=== PATIENT | female | born 1990 | race Caucasian/White ===

== ENCOUNTER 2019-03-05 13:06 | Inpatient (IN) | payer SELFPAY ==
[~2019-03-05] VITALS: Ht 167.6 cm; Wt 81.8 kg
--- NOTE | ~2019-03-05 | DS ---
PATIENT:ESPINOZA AGUIAR :89 MEDICAL RECORD: [id number] DISCHARGE SUMMARY ADMISSION DATE: 03/05/19 DISCHARGE DATE: 03/06/19 DATE OF ADMISSION: 03/05/2019. DATE OF DISCHARGE: 03/06/2019. ADMISSION DIAGNOSES: Acute appendicitis with localized peritonitis. DISCHARGE DIAGNOSES: Acute appendicitis with localized peritonitis. PROCEDURE: Laparoscopic appendectomy on 03/06/2019. CONSULTATIONS: None. REPORT OF HOSPITALIZATION: The patient was admitted to the hospital through the ER with a 4-day history of right lower quadrant/periumbilical pain. A CT scan showed evidence of acute appendicitis. She was given IV antibiotics and the following morning she was taken to the operating room where she underwent a successful laparoscopic appendectomy. Postoperatively, the patient did well and she was set up for discharge home. DISCHARGE INSTRUCTIONS: Return to clinic or call with any questions or concerns, fevers, chills, nausea, vomiting or worsening abdominal pain. ACTIVITIES: No heavy lifting or straining for 2 weeks postoperatively. FOLLOWUP: In clinic with me in 2-3 weeks. DISCHARGE MEDICATIONS: [place] 10 and Zofran 4 mg. TRANSINT:[id number] Voice Confirmation ID: [id number] DOCUMENT ID: [id number] DAO FALL MD CC: [id number] DICTATION DATE: 04/16/19 1401 FLIGHT PURSER: 04/17/19 0024 DIS IN 03/06/19 [facility] [address] [place] [address]
--- NOTE | 2019-03-05 13:30 | NUR ---
URINE SPECIMEN OBTAINED, LABELED AT BS AND SENT TO LAB
[2019-03-05 13:43] VITALS: BP 168/102
[2019-03-05 13:51] LABS: CALC OSMOLALITY 267 mosm/kg (275-300); CALCIUM 9.1 mg/dL (8.5-10.1); CARBON DIOXIDE 21.7 mmol/L (21.0-32.0); CHLORIDE - SERUM 103 mmol/L (98-107); CREATININE - SERUM 0.7 mg/dL (0.6-1.3); GLUCOSE 94 mg/dL (74-106); HCG SERUM NEGATIVE (NEGATIVE); POTASSIUM - SERUM 3.9 mmol/L (3.5-5.1); SODIUM 135 mmol/L (136-145); UREA NITROGEN 7 mg/dL (7-18); eGFR NON AFRICAN AMERICAN > 90 mL/min (90-120)
[2019-03-05 13:56] LABS: ALBUMIN 3.9 g/dL (3.4-5.0); ALKALINE PHOSPHATASE 103 U/L (46-116); ALT (SGPT) 24 U/L (10-68); AMYLASE - SERUM 59 U/L (25-115); BILIRUBIN - TOTAL 1.12 mg/dL (0.2-1.3); LIPASE 87 U/L (73-393); PROTEIN - SERUM 7.7 g/dL (6.4-8.2)
[2019-03-05 14:18] LABS: APPEARANCE CLEAR (CLEAR); BACTERIA FEW /hpf (NEGATIVE); BILIRUBIN NEGATIVE (NEGATIVE); COLOR YELLOW (YELLOW); EPITHELIAL CELLS 0-5 /hpf (0-5); GLUCOSE NEGATIVE (NEGATIVE); HCG URINE NEGATIVE (NEGATIVE); KETONE NEGATIVE (NEGATIVE); MUCUS <1+ /lpf (NONE SEEN); NITRITE NEGATIVE (NEGATIVE); PROTEIN NEGATIVE (NEGATIVE); RED CELLS - URINE 0-5 /hpf (0-5); UROBILINOGEN NORMAL (NORMAL); WHITE CELLS - URINE RARE /hpf (NEGATIVE)
[2019-03-05 14:19] LABS: BASOPHILS 0.1 % (0-2); EOSINOPHILS 0.4 % (0-7); HEMATOCRIT 47.9 % (36.0-48.0); HEMOGLOBIN 16.9 g/dL (12-16); IMMATURE GRANULOCYTES 0.3 % (0-5); LYMPHOCYTES 22.1 % (15-50); MCH 33.2 pg (26.0-34.0); MCHC 35.3 g/dL (31.0-37.0); MCV 94.1 fL (80.0-100.0); MEAN PLATELET VOLUME 10.1 fL (7.4-10.4); MONOCYTES 7.5 % (2-11); NEUTROPHILS 69.6 % (40-80); PLATELET COUNT 325 10x3/uL (130-400); RBC 5.09 10x6/uL (4.00-5.40); RDW 11.9 % (11.5-14.5); WBC 15.4 10x3/uL (4.8-10.8)
--- NOTE | 2019-03-05 14:34 | NUR ---
TO CT VIA WC WITH STRIKE PLANNING APPLICATIONS
[2019-03-05 15:07] VITALS: BP 156/115
--- NOTE | 2019-03-05 15:08 | NUR ---
RTN TO ER#12. NAUSEA RESOLVED CONT TO C/O ABD PAIN. BP ELEVATED. MD NOTIFIED
[2019-03-05 15:32] VITALS: BP 152/107
[2019-03-05 17:30] VITALS: BP 139/93
--- NOTE | 2019-03-05 17:48 | NUR ---
TRANSPORTED TO ROOM #0523 CONDITION STABLE
[2019-03-05 19:00] VITALS: BP 143/90
--- NOTE | 2019-03-05 19:30 | NUR ---
PT LYING IN BED WITHOUT DISTRESS, AOX4. DAUGHTER AT BEDSIDE. IV LEFT WRIST INFUSING NS @ 75 WITH DILAUID TUNNEL ELASTIC OPERATOR ZIGZAG. DENIES NEEDS, CL IN REACH. WILL CTM
--- NOTE | 2019-03-05 21:15 | NUR ---
PT STATES SHE HAS HEADACHE 12/22. CALLED DR FALL AND RECIEVED ORDER FOR TYLENOL 650MG PO Q6PRN FOR HEADACHE. GAVE ORDERED. CONSENTS SIGNED FOR PROCEDURE IN MORNING. REMINDED PT SHE IS NPO AFTER MN. VERBALIZED UNDERSTANDING. DENIES FUTHER NEEDS. CL IN REACH, WILL CTM
--- NOTE | 2019-03-05 22:04 | NUR ---
PT VOMITED INTO TOILET. STATES SHE THOUGHT SHE DRANK TOO MUCH WATER. GAVE ZOFRAN ORDERED. DENIES OTHER NEEDS. CL IN REACH, WILL CTM
[2019-03-06] VITALS: BP 149/91
[2019-03-06 02:00] VITALS: Ht 167.6 cm; Wt 81.8 kg
[2019-03-06 04:00] VITALS: BP 151/88
--- NOTE | 2019-03-06 04:50 | NUR ---
GHG BATH GIVEN, LINENS CHANGED
[2019-03-06 06:17] LABS: BASOPHILS 0.1 % (0-2); EOSINOPHILS 0.7 % (0-7); HEMATOCRIT 44.1 % (36.0-48.0); IMMATURE GRANULOCYTES 0.2 % (0-5); LYMPHOCYTES 30.7 % (15-50); MCH 32.5 pg (26.0-34.0); MCV 95.5 fL (80.0-100.0); MEAN PLATELET VOLUME 10.4 fL (7.4-10.4); NEUTROPHILS 60.3 % (40-80); PLATELET COUNT 282 10x3/uL (130-400); RBC 4.62 10x6/uL (4.00-5.40); RDW 12.2 % (11.5-14.5)
[2019-03-06 06:31] LABS: CALC OSMOLALITY 274 mosm/kg (275-300); CALCIUM 8.5 mg/dL (8.5-10.1); CARBON DIOXIDE 27.3 mmol/L (21.0-32.0); CHLORIDE - SERUM 106 mmol/L (98-107); CREATININE - SERUM 0.7 mg/dL (0.6-1.3); GLUCOSE 84 mg/dL (74-106); POTASSIUM - SERUM 4.4 mmol/L (3.5-5.1); SODIUM 139 mmol/L (136-145); UREA NITROGEN 7 mg/dL (7-18); eGFR NON AFRICAN AMERICAN > 90 mL/min (90-120)
[2019-03-06 06:41] LABS: WBC 9.6 10x3/uL (4.8-10.8)
--- NOTE | 2019-03-06 07:20 | NUR ---
ALERT AND ORIENTED. LUNGS CLEAR BILATERALLY. HEART SOUNDS S1 AND S2 HEARD IN ALL [place]. BOWEL SOUNDS ACTIVE X 4. ADB PAIN NOTED. N/V. SKIN INTACT WITHOUT REDNESS. IV TO LEFT WRIST PATENT WITHOUT REDNESS. DENIES NEEDS. UNHOOKED FROM IV AND TAKE FOR LAPAROSCOPIC APPENDECTOMY. PREOP MEDS GIVEN ON PREVIOUS SHIFT.
[2019-03-06] MEDS ORDERED: HYDROCODON-ACE1 EA10 PO (08:35)
[2019-03-06 09:21] VITALS: BP 130/77
--- NOTE | 2019-03-06 09:25 | NUR ---
PATIENT RETURNED FROM PROCEDURE. VITALS STABLE. DITCH CLEANER DISCONTINUED PER ORDER.
[2019-03-06 09:40] VITALS: BP 139/89
--- NOTE | 2019-03-06 09:46 | NUR ---
PATIENT REQUESTS TO BE DISCHARGED HOME WITH ZOFRAN D/T "PAIN MEDICATION MAKES ME NAUSEAS." DR EUFEMIA KIM.
[2019-03-06 09:55] VITALS: BP 131/91
--- NOTE | 2019-03-06 10:04 | NUR ---
SPOKE WITH DR FALL WHO STATES WILL SEND PATIENT HOME WITH ZOFRAN IN ADDITION TO PAIN MEDICATION PER REQUEST.
[2019-03-06 10:10] VITALS: BP 124/84
[2019-03-06] MEDS ORDERED: ZOFRAN ODT4 MG/UDTAB PO (10:10)
--- NOTE | 2019-03-06 10:18 | NUR ---
RESTING IN BED. POST OP VITALS REMAIN STABLE. WILL CONTINUE TO MONITOR.
--- NOTE | 2019-03-06 10:58 | NUR ---
DISCHARGE EDUCATION PROVIDED BOTH WRITTEN AND VERBAL. VERBALIZED UNDERSTANDING. DENIES FURTHER QUESTIONS. IV REMOVED FROM LEFT WRIST WITH TIP INTACT. PATIENT DENIES FURTHER NEEDS. WAITING FOR MOM TO PRESS OPERATOR AUTOMATIC.
--- NOTE | 2019-03-07 13:49 | OP ---
PATIENT NAME: ESPINOZA AGUIAR MEDICAL RECORD: [id number] :89 LOCATION:[id number] ADMISSION DATE:03/05/19 SURGEON: ERROL FALL MD DATE OF OPERATION: 03/06/2019 PREOPERATIVE DIAGNOSIS: Acute appendicitis with localized peritonitis. POSTOPERATIVE DIAGNOSIS: Acute appendicitis with localized peritonitis. PROCEDURE: Laparoscopic appendectomy. SURGEON: Errol Fall MD REPORT OF PROCEDURE: The patient's abdomen was prepped and draped in sterile fashion. A cutdown was made on the superior aspect of the umbilicus, 0 Vicryls were placed in the fascia bilaterally and the fascia was incised with 15-blade. I then bluntly entered the peritoneal cavity and placed a 12-mm Aly port. Under direct visualization, a 5-mm trocar was placed in the left lower quadrant and another was placed in the suprapubic region. The appendix was easily visualized and noted to be inflamed with no sign of gangrene or perforation. There were no abscess pockets present. We elevated this appendix and took down any adhesions. A window was made at the base of the mesoappendix and the mesoappendix was transected with a 45 white load Endo-SALMA stapler. We then transected the base of the appendix at the cecum using a 45 blue load Endo-SALMA stapler. The appendix was placed into an Endo Catch bag. We inspected the staple lines and any bleeding was treated with electrocautery. At this point, we irrigated out the abdomen and assured there was no sign of any bleeding or leakage. The appendix was taken out through the umbilicus. The umbilical fascia was closed with interrupted 0 Vicryls times 3. The wounds were then irrigated out with normal saline and infused with 10 mL of 0.25% Marcaine with epinephrine. The skin incisions were all closed with subcutaneous 5-0 Monocryl and dressed appropriately. COMPLICATIONS: None. CONDITION: Stable. ANESTHESIA: General endotracheal and local. BLOOD LOSS: Minimal. TRANSINT:[id number] Voice Confirmation ID: [id number] DOCUMENT ID: [id number] ERROL FALL MD at 1349 CC: [id number] DICTATION DATE: 03/06/19 0844 RESEARCH ASSOCIATE MOLECULAR BIOLOGY: 03/06/19 1015 DIS IN 03/06/19 [facility] [address] [place] [address]
== END 2019-03-06 12:16 | disposition home or self-care (01) | DRG 343 ==
LOC: D.OPS 13:06 → D.ER 13:06 → D.MS 17:57 → EDSTATUS 03-06 07:30 → D.MS 03-06 12:16
PROVIDERS: Family Medicine; ADMIT Surgery; ATTEND Surgery
PROC: 0DTJ4ZZ Resection of Appendix, Percutaneous Endoscopic Approach (ICD-10-PCS; principal; 2019-03-06 07:30)
DX: K35.30 Acute appendicitis with localized peritonitis, without perforation or gangrene (principal)